=== PATIENT | male | born 1985 | race Hispanic/Latino ===

== ENCOUNTER 2016-11-02 11:18 | Emergency (ER) | payer OTHER, BC ==
[2016-11-02] MEDS ORDERED: Lidocaine 2% Inj (20ml) ONE (11:37)
[2016-11-02] MEDS ORDERED: TDAP Vaccine 0.5 mL Syr IM ONE (11:48)
--- NOTE | 2016-11-02 11:51 | ED PDOC ---
Upper Extremity Pain/Injury Time Seen by Provider: 11/02/16 11:49 Chief Complaint (Nursing): Abnormal Skin Integrity Chief Complaint (Provider): hand injury History Per: Patient (31 y/o male here for evaluation of left hand laceration that occurred when he was washing glasses in kitchen today. Notes moderate pain in region. Is right handed.) Past Medical History Reviewed: Historical Data, Nursing Documentation, Vital Signs Vital Signs: Last Vital Signs Temp 98.7 F 11/02/16 11:39 Pulse 72 11/02/16 11:39 Resp 16 11/02/16 11:39 BP 144/80 11/02/16 11:39 Pulse Ox 99 11/02/16 11:39 - Medical History PMH: Anxiety Other PMH: On depakote for anxiety. - Family History Family History: States: No Known Family Hx - Immunization History Hx Tetanus Toxoid Vaccination: Yes - Home Medications Home Medications: Ambulatory Orders Medication Instructions Recorded Cephalexin [Keflex] 500 mg PO QID #28 capsule 11/02/16 Ibuprofen [Motrin] 600 mg PO Q8 PRN #21 tab 11/02/16 - Allergies Allergies/Adverse Reactions: Allergies Allergy/AdvReac Type Severity Reaction Status Date / Time No Known Allergies Allergy Verified 11/02/16 11:25 Review of Systems ROS Statement: Except As Marked, All Systems Reviewed And Found Negative Physical Exam - Reviewed Nursing Documentation Reviewed: Yes Vital Signs Reviewed: Yes - Physical Exam Appears: Positive for: Well, Non-toxic, No Acute Distress Head Exam: Positive for: ATRAUMATIC, NORMAL INSPECTION, NORMOCEPHALIC Skin: Positive for: Normal Color, Warm, DRY Eye Exam: Positive for: EOMI, Normal appearance, PERRL ENT: Positive for: Normal ENT Inspection Neck: Positive for: Normal, Painless ROM Cardiovascular/Chest: Positive for: Regular Rate, Rhythm Respiratory: Positive for: CNT, Normal Breath Sounds Gastrointestinal/Abdominal: Positive for: Normal Exam, Bowel Sounds, Soft Back: Positive for: Normal Inspection Extremity: Positive for: Normal ROM, Other (3.0 cm laceration U shaped dorsal surface of second digit by MCP. ? extensor tendon injury. Patient has decreased strength noted with flexion at MCP.) Neurologic/Psych: Positive for: Alert, Oriented - ECG O2 Sat by Pulse Oximetry: 99 - Progress ED Course And Treament: Keflex 500 mg x 1 dose MOtrin 600mg x 1 dose Tdap 0.5m. IM x 1 dose xry of hand: no foreign body; no fx d/w Dr. Hernandez. Will placed in extension with volar splint. Patient to f/u friday for evaluation. Disposition - Clinical Impression Clinical Impression: Finger laceration - Patient ED Disposition Is Patient to be Admitted: No - Disposition Referrals: Etelvina Hernandez MD [Staff Provider] - Disposition: Routine/Home Disposition Time: 12:47 Condition: FAIR Additional Instructions: F/U WITH DR. HERNANDEZ ON FRIDAY FOR WOUND EVALUATION/EVALUATION OF HAND INJURY SUTURES TO BE REMOVED IN 10 DAYS. Prescriptions: Cephalexin [Keflex] 500 mg PO QID #28 capsule Ibuprofen [Motrin] 600 mg PO Q8 PRN #21 tab PRN Reason: Pain, Severe (8-10) Instructions: Laceration (ED) Forms: [facility] ED School/Work Excuse Procedure: Wound Repair - Time Performed Time Performed: 12:54 - Time Out Time Out: Site verified - Consent Obtained Consent obtained: Verbal - Performed by Performed by: Mid-level Provider - Indications Indication(s):: Laceration - Location Location:: Left, Hand Finger:: Index Shape:: Curvilinear Dimensions Length cm: 3.5 CM Depth:: Epidermis - Anesthetic Technique Anesthetic Technique: Local Local/Regional Anesthetic:: Lidocaine 2% - Debris Debris:: None - Irrigated Irrigated with ml of normal saline: 200ML - Complexity Complexity:: Simple (one layer) - Wound repair method Sutures:: # (SEVEN), Size (4-0 PROLENE), Type, Technique (INTERRUPTED) - Patient tolerated procedure Patient Tolerated Procedure:: Well
--- NOTE | 2016-11-02 12:07 | RAD ---
PROCEDURE: Left Index finger radiographs. HISTORY: r/o foreign body COMPARISON: None available FINDINGS: LEFT INDEX FINGER: Inadequate lateral view the 2nd digit is provided. No acute displaced fracture or dislocation identified. Remainder of the left hand (as seen on the AP view) grossly intact. JOINTS: Normal. SOFT TISSUES: Soft tissue irregularity about the 2nd phalanx with evidence of overlying bandage and evidence of laceration. No definite radiopaque foreign body identified. OTHER FINDINGS: None. IMPRESSION: Limited study. Inadequate lateral view the 2nd digit is provided. No acute displaced fracture or dislocation identified. Soft tissue irregularity about the 2nd phalanx with evidence of overlying bandage and evidence of laceration. No definite radiopaque foreign body identified.
[2016-11-02 13:02] VITALS: BP 144/80; PULSE 72; RESP 16; TEMP 98.7; O2SAT 99
== END 2016-11-02 13:34 | disposition home or self-care (01) ==
LOC: H.ER 11:18
DX: S61.211A Laceration without foreign body of left index finger without damage to nail, initial encounter (principal); W25.XXXA Contact with sharp glass, initial encounter; Y93.G1 Activity, food preparation and clean up; Y92.9 Unspecified place or not applicable